=== PATIENT | male | born 1960 | race Caucasian/White ===

== ENCOUNTER 2021-09-27 08:00 | Outpatient (CLI) | payer OTHER | END 2021-09-27 08:30 | disposition home or self-care (01) | LOC: PPH VACUNA 08:00 | PROVIDERS: ATTEND Emergency Medicine Pediatric Emergency Medicine | DX: Z23 Encounter for immunization (principal) ==

== ENCOUNTER 2021-10-05 07:47 | Outpatient (CLI) | payer OTHER | END 2021-10-05 08:05 | disposition home or self-care (01) | LOC: NUCLEAR 07:47 | DX: C41.0 Malignant neoplasm of bones of skull and face (principal) | CPT/HCPCS: 78815; A9552 ==

== ENCOUNTER 2021-10-12 07:17 | Outpatient (CLI) | payer OTHER | END 2021-10-12 07:18 | disposition home or self-care (01) | LOC: NUCLEAR 07:17 | DX: C41.0 Malignant neoplasm of bones of skull and face (principal) | CPT/HCPCS: 78803; A9503 ==